=== PATIENT | female | born 1955 | race Caucasian/White ===

== ENCOUNTER → 2022-07-20 10:49 | Outpatient (BNVA) | payer OTHER, SELFPAY | PROVIDERS: PCP Physician Assistant; Visit Provider Psychiatry & Neurology Neurology | DX: Z13.89 Encounter for screening for other disorder (principal) ==

== ENCOUNTER → 2022-08-02 15:06 | Outpatient (REF) | payer OTHER, SELFPAY | LOC: HO.SL 15:06 | PROVIDERS: PCP Physician Assistant; Visit Provider Psychiatry & Neurology Neurology | DX: G47.10 Hypersomnia, unspecified (principal); R06.83 Snoring; E66.9 Obesity, unspecified | CPT/HCPCS: 95806 ==

== ENCOUNTER → 2022-09-14 12:15 | Outpatient (BNVA) | payer OTHER, SELFPAY | PROVIDERS: PCP Physician Assistant; Visit Provider Psychiatry & Neurology Neurology | DX: R06.83 Snoring (principal); G47.10 Hypersomnia, unspecified; E66.9 Obesity, unspecified ==

== ENCOUNTER → 2022-09-19 20:30 | Outpatient (REF) | payer OTHER, SELFPAY | LOC: HO.SL 20:30 | PROVIDERS: PCP Physician Assistant; Visit Provider Nurse Practitioner Family | DX: G47.10 Hypersomnia, unspecified (principal); R06.83 Snoring; G47.61 Periodic limb movement disorder; E66.01 Morbid (severe) obesity due to excess calories; Z68.41 Body mass index [BMI] 40.0-44.9, adult | CPT/HCPCS: 95810 ==

== ENCOUNTER 2023-02-08 12:12 | Outpatient (AMB) | payer OTHER, SELFPAY ==
--- NOTE | 2023-02-08 12:40 | A.OFFVIS_ITS ---
Intake Vital Signs 02/08/23 12:41 Height 5 ft 5 in Weight 242 lb 8 oz BMI 40.3 BP 122/64 Blood Pressure Location Rt brachial Position Sitting Respiration 18 Pulse 75 Pulse Source Pulse Oximeter Pulse Oximetry (%) 94 Oxygen Delivery Method Room Air Intake Visit Reasons: 5m f/u Tremor - Confirmed Intake Note: Pt presents to the office for 5 month follow up for tremors. She reports she is better that her last visit. Her meds seem to be working . [employer] Chief Clerk Required: No Allergies alendronate sodium [From Fosamax] Allergy (Severe, Verified 02/08/23 12:41) indegestion Medication List - Last Reconciled 02/08/23 by Mayuri Mendoza MD acetaminophen 325 mg PO Q4H PRN aspirin 81 mg PO DAILY bupropion HCl 300 mg PO DAILY cholecalciferol (vitamin D3) 250 mcg PO QWEEK duloxetine (Cymbalta) 30 mg PO DAILY lidocaine-prilocaine 2.5-2.5 % grams topical TID PRN propranolol 10 mg PO BID HPI HPI Comments History of Present Illness Details 66y/o right handed female comes for foll ow up of tremors. Propranalol is helping her tremors. Her home sleep test was inconclusive , she is scheduled for in lab study next week. Her hand writing is better and still has trouble with drinking liquids from a water bottles she has h/o depression, anxiety and is managed by Dr. Jose De Jesus Horner. It is stable now. Any kind stress makes it worse. No voice or head tremors. She denies family h/o tremors She denies head injury. she denies any exposure to neuroleptics or reglan. she has mild leg tremors in certain positions. No change in gait, memory. she has sleep talking, has difficulty sleeping , snoring, excessive daytime fatigue.she had sleep study many years ago ( 2005)and diagnosed with sleep apnea . she used CPAP for 4 years and stopped. [facility] Medical History Benign essential tremor Hypersomnia Depression Obesity Osteoporosis Obstructive sleep apnea Iron deficiency Post-polio syndrome HTN (hypertension) Carpal tunnel syndrome GERD (gastroesophageal reflux disease) Surgical History H/O gastric bypass H/O: hysterectomy Hx of cholecystectomy History of knee replacement History of colonoscopy Family History Mother Cancer of breast Father CAD (coronary artery disease) Sister Arthritis Social History Alcohol intake: current Patient Tobacco Use Status: Never used Tobacco Physical Exam Vital Signs: Last Vital Signs Pulse 75 02/08/23 12:41 Resp 18 02/08/23 12:41 BP 122/64 02/08/23 12:41 Pulse Ox 94 02/08/23 12:41 Oxygen Delivery Method Room Air 02/08/23 12:41 BMI result Body Mass Index 40.3 Const General: cooperative, healthy appearing and comfortable Nutritional Appearance: obese Orientation/consciousness: patient oriented x3 Limitations: physical limitations Neck Neck: Yes no meningeal signs Neuro Other: no head tremors No voice tremors Neck tightness Mild anne postural tremors UE no action tremors SHe was able to draw archimedes spiral in anne hands Handwriting- mild difficulty, recognizable General: patient oriented x3, tone normal, moves all extremities, no meningeal signs and no focal motor deficits Cranial nerves: Yes Facial sensation intact/muscles of mastication intact, Yes Bilaterally intact EOM present, Yes Nystagmus not present, Yes Normal facial strength present, Yes Midline tongue present and Yes Symmetric palate elevation present Cognition (Neuro): normal cognition Gait exam (Neuro): Antalgic gait present Motor exam (neuro): 5/5 motor strength present throughout and Normal motor muscle tone present throughout Coordination: [id number] test normal Psych Appearance: grossly normal Assessment & Plan Assessment & Plan (1) Benign essential tremor: Code(s): G25.0 - Essential tremor Plan Continue propranolol 10 mg bid Recommended home exercises Medications: Refilled propranolol 10 mg PO BID 60 tabs 6RF Coding Level of Care Code Est Pt Level 3 (56320) Diagnoses Benign essential tremor G25.0
[2023-02-08 12:41] VITALS: BP 122/64; PULSE 75; RESP 18; O2SAT 94; BMI 40.3
== END 2023-02-08 12:58 | disposition home or self-care (01) ==
PROVIDERS: PCP Physician Assistant; Visit Provider Psychiatry & Neurology Neurology
DX: G25.0 Essential tremor (principal)
CPT/HCPCS: 99213

== ENCOUNTER → 2023-02-08 12:12 | Outpatient (BNVA) | payer OTHER, SELFPAY | PROVIDERS: PCP Physician Assistant; Visit Provider Psychiatry & Neurology Neurology | DX: R06.83 Snoring (principal); G47.10 Hypersomnia, unspecified; E66.9 Obesity, unspecified; G25.0 Essential tremor; G47.33 Obstructive sleep apnea (adult) (pediatric) ==

== ENCOUNTER 2024-02-12 10:21 | Outpatient (AMB) | payer OTHER, SELFPAY ==
--- NOTE | 2024-02-12 10:19 | MHC.OFFVIS ---
Vital Signs 02/12/24 10:24 Height 5 ft 5 in Weight 258 lb BMI 42.9 BP 138/76 Blood Pressure Location Rt brachial Position Sitting Intake Visit Reasons: 1 yr f/u - Tremors Intake Note: Patient presents for tremors Allergies alendronate sodium [From Fosamax] Allergy (Severe, Verified 02/12/24 10:24) indegestion Medication List - Last Reconciled 02/12/24 by Mayuri Mendoza MD acetaminophen 325 mg PO Q4H PRN aspirin 81 mg PO DAILY bupropion HCl SR 300 mg PO DAILY cholecalciferol (vitamin D3) 250 mcg PO QWEEK duloxetine (Cymbalta) 30 mg PO DAILY lidocaine-prilocaine 2.5-2.5 % grams topical TID PRN propranolol 10 mg PO BID HPI Comments Details: 68y/o right handed female comes for follow up of tremors.she is doing well. Propranalol is helping her tremors. Her home sleep test and in lab sleep study were normal. Her hand writing is better and still has trouble with drinking liquids from a water bottles she is independent in all her ADLs. No voice or head tremors. She denies family h/o tremors She denies head injury. she denies any exposure to neuroleptics or reglan. she has mild leg tremors in certain positions. No change in gait, memory. [facility] Medical History Benign essential tremor Hypersomnia Depression Obesity Osteoporosis Obstructive sleep apnea Iron deficiency Post-polio syndrome HTN (hypertension) Carpal tunnel syndrome GERD (gastroesophageal reflux disease) Surgical History H/O gastric bypass H/O: hysterectomy Hx of cholecystectomy History of knee replacement History of colonoscopy Family History Mother Cancer of breast Father CAD (coronary artery disease) Sister Arthritis Social History Alcohol intake: current Patient Tobacco Use Status: Never used Tobacco Physical Exam Vital Signs: Last Vital Signs BP 138/76 02/12/24 10:24 BMI result Body Mass Index 42.9 Const General: cooperative, healthy appearing and comfortable Nutritional Appearance: obese Orientation/consciousness: patient oriented x3 Limitations: physical limitations Neck Neck: Yes no meningeal signs Neuro Other: no head tremors No voice tremors Neck tightness Mild anne postural tremors UE no action tremors SHe was able to draw archimedes spiral in anne hands Handwriting- mild difficulty, recognizable General: patient oriented x3, tone normal, moves all extremities, no meningeal signs and no focal motor deficits Cranial nerves: Yes Facial sensation intact/muscles of mastication intact, Yes Bilaterally intact EOM present, Yes Nystagmus not present, Yes Normal facial strength present, Yes Midline tongue present and Yes Symmetric palate elevation present Cognition (Neuro): normal cognition Gait exam (Neuro): Antalgic gait present Motor exam (neuro): 5/5 motor strength present throughout and Normal motor muscle tone present throughout Coordination: [id number] test normal Psych Appearance: grossly normal Assessment & Plan Assessment & Plan (1) Benign essential tremor: Code(s): G25.0 - Essential tremor Category: Medical Plan Continue propranolol 10 mg bid Recommended home exercises F/u as needed Medications: Refilled propranolol 10 mg PO BID 60 tabs 6RF Coding Level of Care Code Est Pt Level 4 (43002) Diagnoses Benign essential tremor G25.0
[2024-02-12 10:24] VITALS: BP 138/76; BMI 42.9
== END 2024-02-12 10:38 | disposition home or self-care (01) ==
PROVIDERS: PCP Physician Assistant; Visit Provider Psychiatry & Neurology Neurology
DX: G25.0 Essential tremor (principal)
CPT/HCPCS: 99214